=== PATIENT | female | born 1955 | race Two or more races ===

== ENCOUNTER 2023-08-14 10:20 | Emergency (ER) | payer MEDICAID | END 2023-08-14 11:40 | disposition left against medical advice (07) | LOC: ER 10:20 | DX: M79.603 Pain in arm, unspecified (principal); Z53.21 Procedure and treatment not carried out due to patient leaving prior to being seen by health care provider ==

== ENCOUNTER 2023-08-14 18:40 | Emergency (ER) | payer MEDICAID ==
[~2023-08-14] VITALS: Ht 152.4 cm; Wt 63.1 kg
[2023-08-14 19:52] LABS: Basophils # (auto) 0.1 10 ^3/uL (0-0.2); Basophils % (auto) 0.9 % (0.0-2.0); Eosinophils # (auto) 0.6 10 ^3/uL (0-0.8); Eosinophils % (auto) 7.7 % (0.0-7.0); Hemoglobin 14.4 g/dL (12.2-16.2); Lymphocytes # (auto) 3.2 10 ^3/uL (0.4-5.4); Lymphocytes % (auto) 39.1 % (10.0-50.0); Mean Corpuscular Hemoglobin 32.1 pg (28.0-32.0); Mean Corpuscular Hgb Conc. 33.5 g/dL (32.0-36.0); Monocytes # (auto) 0.6 10 ^3/uL (0-1.3); Monocytes % (auto) 7.4 % (0.0-12.0); Neutrophils # (auto) 3.6 10 ^3/uL (1.6-8.6); Neutrophils % (auto) 44.9 % (37.0-80.0); Nucleated Red Blood Cells % 0.1 %; Red Blood Cells 4.48 10^6/uL (4.0-5.20); Red Cell Distribution Width 12.6 % (11.8-14.3); White Blood Cell 8.1 10^3/uL (4.4-10.8)
[2023-08-14 20:04] LABS: Chloride 109 mmol/L (98-107); Potassium 3.8 mmol/L (3.5-5.1); Sodium 142 mmol/L (136-145)
[2023-08-14 20:05] LABS: Anion Gap 9 (5-15); Calcium 8.8 mg/dL (8.5-10.1); Carbon Dioxide 24 mmol/L (20-30)
[2023-08-14 20:10] LABS: BUN/Creatinine Ratio 31.3 (10.0-20.0); Blood Urea Nitrogen 20 mg/dL (9-23); Glucose 128 mg/dL (74-106)
[2023-08-14 21:37] VITALS: BP 153/54; PULSE 68; RESP 18; TEMP 98.1; O2SAT 98
[2023-08-14] MEDS: ONDANSETRON ODT 4 MG TAB PO ONE (21:44)
[2023-08-14] MEDS: HYDROcodone-ACET 5/325MG TAB PO ONE (21:44)
== END 2023-08-14 21:37 | disposition home or self-care (01) ==
LOC: ER 18:40
DX: M25.511 Pain in right shoulder (principal); W18.39XA Other fall on same level, initial encounter; Y93.89 Activity, other specified; Y92.89 Other specified places as the place of occurrence of the external cause; Y99.8 Other external cause status
CPT/HCPCS: 36415; 71045; 73030; 80048; 84484; 85025; 99284; Q0162